=== PATIENT | female | born 1960 | race Caucasian/White ===

== ENCOUNTER 2018-11-06 09:08 | Day surgery (SDC) | payer OTHER ==
[~2018-11-06] VITALS: Ht 154.9 cm; Wt 68.1 kg
[~2018-11-06 09:08] MED LIST: ALBU90OI INH; ALBU90OI6 INH; ATOR20 PO; AZIT250 PO; CARV25 PO; CARV3.125 PO; CHOL10002 PO; CLOP75 PO; CYCL10 PO; Carvedilol12.5 MG PO; Cyclobenzaprine5 MG PO; DIPH50 PO; HYDACE10B PO; HYDACE5 PO; HYDHCL25 PO; HYDPAM25 PO; NICO14TP TOP; Norco 10-325 T1 EACH PO; OXYACE5T PO; PRED20 PO; RXCYCL10 PO; RXOXYACE PO; TIOT18 INH
--- NOTE | 2018-11-06 12:01 | NUR ---
11/06/18 1201 Benny Estrella PT NOTES VOMITTING WITH PCN. DR. CAMPBELL NOTIFIED AND REQUESTS WE CONTINUE WITH ORDER FOR ANCEF 2GM.
== END 2018-11-06 13:20 | disposition home or self-care (01) ==
LOC: ORSCSDS 09:08
PROVIDERS: Orthopaedic Surgery
PROC: 01N40ZZ Release Ulnar Nerve, Open Approach (ICD-10-PCS; principal; 2018-11-06 11:00)
DX: G56.21 Lesion of ulnar nerve, right upper limb (principal); I10 Essential (primary) hypertension; J44.9 Chronic obstructive pulmonary disease, unspecified; F17.210 Nicotine dependence, cigarettes, uncomplicated; Z86.73 Personal history of transient ischemic attack (TIA), and cerebral infarction without residual deficits; D68.9 Coagulation defect, unspecified; Z79.01 Long term (current) use of anticoagulants
CPT/HCPCS: J0690; J1100; J1885; J2250; J2405; J2710; J3010; J7120

== ENCOUNTER 2020-05-02 14:48 | Emergency (ER) | payer OTHER ==
[~2020-05-02] VITALS: Ht 154.9 cm; Wt 84.8 kg
== END 2020-05-02 16:50 | disposition home or self-care (01) ==
LOC: ER 14:48
DX: M54.41 Lumbago with sciatica, right side (principal); I10 Essential (primary) hypertension; E78.5 Hyperlipidemia, unspecified; F17.200 Nicotine dependence, unspecified, uncomplicated; Z88.0 Allergy status to penicillin; Z88.2 Allergy status to sulfonamides; Z88.8 Allergy status to other drugs, medicaments and biological substances; Z88.5 Allergy status to narcotic agent; Z88.6 Allergy status to analgesic agent; Z79.02 Long term (current) use of antithrombotics/antiplatelets; Z79.899 Other long term (current) drug therapy; Z86.73 Personal history of transient ischemic attack (TIA), and cerebral infarction without residual deficits
CPT/HCPCS: 73502; 99283-25